=== PATIENT | female | born 1950 | race African-American/Black ===

== ENCOUNTER 2019-05-02 10:50 | Emergency (ER) | payer OTHER ==
[~2019-05-02] VITALS: Ht 165.1 cm; Wt 108.9 kg
--- NOTE | 2019-05-02 11:00 | NUR ---
Patient to ER bed 8 to gown for evaluation. Side rails up. Assumed care.
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
--- NOTE | 2019-05-02 11:07 | NUR ---
ER at bedside examining patient.
[2019-05-02 11:08] VITALS: BP_SYST 154
--- NOTE | 2019-05-02 12:30 | NUR ---
Patient awaiting radiology exams. Will continue to follow up and monitor.
[2019-05-02 14:12] VITALS: BP_SYST 150
--- NOTE | 2019-05-02 14:12 | NUR ---
Patient given written and verbal discharge instructions and verbalizes understanding. ER MD discussed with patient the results and treatment provided. Patient in stable condition. ID arm band removed. Rx of Motrin, Robaxin, English given. Patient educated on pain management and to follow up with PMD. Pain Scale 3/10. Opportunity for questions provided and answered. Medication side effect fact sheet provided.
== END 2019-05-02 14:12 | disposition home or self-care (01) ==
LOC: SED 10:50
DX: S16.1XXA Strain of muscle, fascia and tendon at neck level, initial encounter (principal); V49.50XA Passenger injured in collision with unspecified motor vehicles in traffic accident, initial encounter; Y93.89 Activity, other specified; Y92.89 Other specified places as the place of occurrence of the external cause; Y99.8 Other external cause status
CPT/HCPCS: 72125-TC; 99284

== ENCOUNTER 2019-06-19 04:31 | Emergency (ER) | payer OTHER ==
[~2019-06-19] VITALS: Ht 165.1 cm; Wt 113.4 kg
[2019-06-19 05:03] VITALS: BP_SYST 150
[2019-06-19 06:46] LABS: STREPTOCOCCUS A SCREEN (RAPID) NEGATIVE (NEGATIVE)
[2019-06-19] MEDS ORDERED: OSELTAMIVIR PHOSPHATE 75 MG CAPSULE PO ONE (07:00)
[2019-06-19 07:39] LABS: BASOPHILS % (AUTO) 0.6 % (0.0-2.0); EOSINOPHILS % (AUTO) 0.2 % (0.0-4.0); HEMATOCRIT 37.5 % (36-48); HEMOGLOBIN 12.6 g/dL (12.0-16.0); LYMPHOCYTES # (AUTO) 0.5 K/uL (1.0-5.5); LYMPHOCYTES % (AUTO) 9.3 % (20.5-51.5); MEAN CORPUSCULAR HEMOGLOBIN 29 pg (27-31); MEAN CORPUSCULAR HGB CONC 34 % (32-36); MEAN CORPUSCULAR VOLUME 87 fL (79.0-98.0); MONOCYTES # (AUTO) 0.6 K/uL (0.0-1.0); MONOCYTES % (AUTO) 12.4 % (1.7-9.3); NEUTROPHILS % (AUTO) 77.5 % (40.0-70.0); PLATELET COUNT (AUTO) 193 K/uL (130-430); RED CELL DISTRIBUTION WIDTH 14.5 % (9.0-15.0); WHITE BLOOD COUNT (AUTO) 5.1 K/uL (4.8-10.8)
[2019-06-19] MEDS ORDERED: AZITHROMYCIN 250 MG TABLET PO ONE (07:45)
[2019-06-19] MEDS ORDERED: OSELTAMIVIR PHOSPHATE 75 MG CAPSULE ONE (08:13)
[2019-06-19 08:20] LABS: CALCIUM 8.6 mg/dL (8.4-11.0); CREATININE 0.8 mg/dL (0.55-1.30); POTASSIUM 3.9 mmol/L (3.5-5.1)
[2019-06-19 08:26] VITALS: BP_SYST 148
[2019-06-19 08:38] LABS: ALBUMIN 3.3 g/dL (3.4-4.8); TOTAL BILIRUBIN 0.3 mg/dL (0.0-1.0)
== END 2019-06-19 08:26 | disposition home or self-care (01) ==
LOC: SED 04:31
DX: J11.00 Influenza due to unidentified influenza virus with unspecified type of pneumonia (principal)
CPT/HCPCS: 36415; 71045; 80053; 85025; 86403; 86710; 87081; 99284; G9035; Q0144

== ENCOUNTER 2021-05-01 23:29 | Inpatient (IN) | payer OTHER, SELFPAY ==
[~2021-05-01] VITALS: Ht 165.1 cm; Wt 111.6 kg
[2021-05-01 23:29] VITALS: BP_SYST 136
--- NOTE | 2021-05-02 01:05 | NUR ---
Patient to ER bed 1 to gown for evaluation. Side rails up. Report received from SAMUEL Fraser
--- NOTE | 2021-05-02 01:06 | NUR ---
Assumed total care of patient. Patient BIB ALS from home c/o ALOC. Patient is AAO x4, placed on correctional classification counselor, tachypneic, tachycardic, warm to the touch, blood pressure WNL. Patient has 20g LAC, IV site patent without signs of infiltration or infection. Per patient arrived home from work today and stayed in the car for about an hour prior to coming into the house and then appeared to be altered, fatigued, and incontinent. Patient c/o being tired and a toothache. Patient history of diabetes and high cholesterol. Patient takes metformin. Patient has been experiencing diarrhea x1 weeks per . Will continue to monitor.
--- NOTE | 2021-05-02 01:08 | NUR ---
at bedside with patient.
--- NOTE | 2021-05-02 01:10 | NUR ---
ER Dr. Harper at bedside examining patient.
[2021-05-02 01:18] LABS: BASOPHILS % (AUTO) 0.3 % (0.0-2.0); EOSINOPHILS % (AUTO) 0.1 % (0.0-4.0); HEMATOCRIT 39.3 % (36-48); HEMOGLOBIN 13.2 g/dL (12.0-16.0); LYMPHOCYTES # (AUTO) 0.5 K/uL (1.0-5.5); LYMPHOCYTES % (AUTO) 3.2 % (20.5-51.5); MEAN CORPUSCULAR HEMOGLOBIN 28 pg (27-31); MEAN CORPUSCULAR HGB CONC 34 % (32-36); MEAN CORPUSCULAR VOLUME 84 fL (79.0-98.0); MONOCYTES # (AUTO) 0.7 K/uL (0.0-1.0); NEUTROPHILS # (AUTO) 13.4 K/uL (1.8-7.7); NEUTROPHILS % (AUTO) 91.4 % (40.0-70.0); PLATELET COUNT (AUTO) 236 K/uL (130-430); RED BLOOD CELL COUNT(AUTO) 4.68 MIL/uL (4.2-6.2); RED CELL DISTRIBUTION WIDTH 14.1 % (9.0-15.0); WHITE BLOOD COUNT (AUTO) 14.7 K/uL (4.8-10.8)
[2021-05-02 01:28] LABS: ANION GAP 12 (5-15); CALCIUM 8.6 mg/dL (8.4-11.0); CHLORIDE 100 mmol/L (98-107); CREATININE 0.73 mg/dL (0.55-1.30); GLUCOSE 175 mg/dL (70-99); POTASSIUM 3.3 mmol/L (3.5-5.1); SODIUM SERUM 140 mmol/L (136-145); UREA NITROGEN, BLOOD 8 mg/dL (8-21)
[2021-05-02 01:33] LABS: GFR AFRICAN AMERICAN 102 mL/min (>90)
[2021-05-02 01:34] LABS: ALANINE AMINOTRANSFERASE 23 U/L (12-78); ALBUMIN 3.4 g/dL (3.4-4.8); ASPARTATE AMINOTRANSFERASE 23 U/L (10-37); TOTAL BILIRUBIN 0.7 mg/dL (0.0-1.0)
[2021-05-02 01:35] LABS: ACETAMINOPHEN < 1 ug/mL (1-30); ALCOHOL, BLOOD < 3 mg/dL (<10)
--- NOTE | 2021-05-02 01:40 | NUR ---
# 16 FR In and Out catheter with use of sterile technique. Immediate return of 200 ml clear yellow urine noted. Urine sample collected and sent to lab. Pt tolerated procedure well. Patient incontinent
--- NOTE | 2021-05-02 01:43 | NUR ---
Patient transported to radiology via gurney, accompanied by jun.
[2021-05-02 01:47] LABS: CHOLESTEROL 224 mg/dL (<200); HDL CHOLESTEROL 63 mg/dL (>55); LDL CHOLESTEROL 145 mg/dL (<100); TRIGLYCERIDES 92 mg/dL (30-150)
[2021-05-02 01:58] LABS: BILIRUBIN,URINE NEGATIVE (NEGATIVE); BLOOD, URINE 2+ (NEGATIVE); COLOR,URINE YELLOW (YELLOW); GLUCOSE,URINE NEGATIVE (NEGATIVE); KETONES,URINE 3+ (NEGATIVE); LEUKOCYTE ESTERASE ,URINE NEGATIVE (NEGATIVE); NITRITE, URINE NEGATIVE (NEGATIVE); PH,URINE 5.5 (5.0-8.0); PROTEIN URINE NEGATIVE (NEGATIVE); UROBILINOGEN,URINE 0.2 (0.2-1.0)
--- NOTE | 2021-05-02 02:01 | NUR ---
Returned from radiology, back to [facility].
[2021-05-02 02:02] LABS: CLARITY/URINE SLIGHTLY CLOUDY (CLEAR)
[2021-05-02 02:15] LABS: BARBITURATE, URINE NEGATIVE (NEG <=200); BENZODIAZEPINE, URINE NEGATIVE (NEG <=150); CANNABINOID, URINE NEGATIVE (NEG <=50); COCAINE, URINE NEGATIVE (NEG <=150); METHAMPHETAMINES SCREEN,URINE NEGATIVE (NEG <=500); OPIATE, URINE NEGATIVE (NEG <=100); PHENCYCLIDINE SCREEN,URINE NEGATIVE (NEG <=25); UR TRICYCLIC ANTIDEPRESSANTS NEGATIVE (NEG <=300); URINE AMPHETAMINE NEGATIVE (NEG <=500); URINE METHADONE NEGATIVE (NEG <=200); URINE OXYCODONE SCREEN NEGATIVE (NEG <=100); URINE PROPOXYPHENE SCREEN NEGATIVE (NEG <=300)
[2021-05-02 02:38] LABS: BACTERIA,URINE FEW /HPF (None Seen); WBC,URINE 0-3 /HPF (0-3)
--- NOTE | 2021-05-02 03:12 | NUR ---
Patient cleaned, fresh linens placed on gurney, and warm blanket given to patient. at bedside
--- NOTE | 2021-05-02 03:30 | NUR ---
Dr. Harper at bedside speaking with patient and family
--- NOTE | 2021-05-02 03:57 | NUR ---
Patient will be admitted to care of Dr. Santiago. Admitted to TELE unit. Will go to room pending. Complete and up to date summary report printed. SBAR report to be given at bedside with opportunity for questions.
--- NOTE | 2021-05-02 04:17 | NUR ---
Patient's code status is Full CODE paperwork completed and placed in chart.
--- NOTE | 2021-05-02 05:02 | NUR ---
Patient remains incontinent. Patient cleaned, linens changed, given warm blankets.
--- NOTE | 2021-05-02 05:04 | NUR ---
# 16 FR Gillette catheter with use of sterile technique. Immediate return of 50 cc clear yellow urine noted. Bedside drainage bag placed below level of bladder. Urine sample collected and sent to lab. Pt tolerated procedure well.
--- NOTE | 2021-05-02 06:51 | NUR ---
Patient will be going to room 104B after 07
--- NOTE | 2021-05-02 07:06 | NUR ---
Report given to SAMUEL Woodward for continuation of care.
--- NOTE | 2021-05-02 07:38 | NUR ---
REPRT GIVEN TO ROSAS BAKER, UPDATED ON STATUS, LLABS AND VITALS. PT STABLE FOR TRANSFER. VSS.
[2021-05-02] MEDS ORDERED: ALBUTEROL SULFATE 0.083% 2.5 MG/3 ML VIAL.NEB INH PRN (07:45)
--- NOTE | 2021-05-02 07:56 | NUR ---
Patient will be admitted to care of DR KNAPP. Admitted to unit. Will go to room . Belongings list completed. Complete and up to date summary report printed. SBAR report to be given at bedside with opportunity for questions.
[2021-05-02 08:00] VITALS: BP_SYST 160
--- NOTE | 2021-05-02 08:00 | NUR ---
PATIENT CAME FROM ER A 70 YEAR OLD PATIENT. ALERT AWAKE X 3-4. WITH ALOC DIAGNOSIS. HAS IV ACCESS ON THE LEFT AC #20 SALINE LOCK. LUNGS BILATERALLY CLEAR. ABDOMEN SOFT AND NON DISTENDED. PATIENT CAME WITH BURCIAGA CATHETER #16. DRAINING CLEAR YELLOW URINE. DUE TO RETENTION. AND FREQUENCY PER REPORT. CALL LIGHTS WITHIN REACH. BED LOW POSITION, ALARMED AND LOCKED. OBESE.
[2021-05-02 08:15] LABS: BASOPHILS # (AUTO) 0.1 K/uL (0.0-0.2); BASOPHILS % (AUTO) 0.6 % (0.0-2.0); HEMATOCRIT 36.7 % (36-48); HEMOGLOBIN 12.3 g/dL (12.0-16.0); LYMPHOCYTES # (AUTO) 0.6 K/uL (1.0-5.5); LYMPHOCYTES % (AUTO) 5.2 % (20.5-51.5); MEAN CORPUSCULAR HEMOGLOBIN 28 pg (27-31); MEAN CORPUSCULAR HGB CONC 34 % (32-36); MEAN CORPUSCULAR VOLUME 84 fL (79.0-98.0); MONOCYTES # (AUTO) 0.8 K/uL (0.0-1.0); MONOCYTES % (AUTO) 6.4 % (1.7-9.3); NEUTROPHILS # (AUTO) 10.5 K/uL (1.8-7.7); NEUTROPHILS % (AUTO) 87.8 % (40.0-70.0); PLATELET COUNT (AUTO) 202 K/uL (130-430); RED BLOOD CELL COUNT(AUTO) 4.35 MIL/uL (4.2-6.2); RED CELL DISTRIBUTION WIDTH 14.3 % (9.0-15.0)
[2021-05-02 08:37] LABS: ALBUMIN 2.9 g/dL (3.4-4.8); CALCIUM 8.3 mg/dL (8.4-11.0); CREATININE 0.82 mg/dL (0.55-1.30); POTASSIUM 3.2 mmol/L (3.5-5.1); TOTAL BILIRUBIN 0.6 mg/dL (0.0-1.0)
[2021-05-02 08:41] VITALS: BP_SYST 136
[2021-05-02 08:47] LABS: INR 1.1 (0.8-1.2); PROTHROMBIN TIME 11.4 SECS (9.5-12.5)
--- NOTE | 2021-05-02 09:00 | NUR ---
SEEN BY DR RODRIGUEZ ASIC ENGINEER.
--- NOTE | 2021-05-02 09:04 | NUR ---
CONSULTATION PAGED REASON FOR CONSULTATION:CONFUSION WAS CONSULT CALLED?Y PERSON WHO WAS NOTIFIED:MAGAN GIBBS TEXT MESSAGED CONSULTING PHYSICIAN:MAGAN GIBBS DATA WAREHOUSE CONSULTANT SPECIALTY:NEURO DATA WAREHOUSE CONSULTANT PHONE NUMBER:[phone] REQUESTING PHYSICIAN:TAYLOR MONGE
--- NOTE | 2021-05-02 09:08 | NUR ---
CONSULTATION PAGED REASON FOR CONSULTATION:RULE OUT ARRHYTMIA WAS CONSULT CALLED?Y PERSON WHO WAS NOTIFIED:JOSE CONSULTING PHYSICIAN:JASON BROWNE EARLY INTERVENTION SPECIALIST SPECIALTY:CARDIO EARLY INTERVENTION SPECIALIST PHONE NUMBER:[phone] REQUESTING PHYSICIAN:TAYLOR MONGE
[2021-05-02] MEDS: ACETAMINOPHEN 325 MG TABLET PO PRN ×3 (10:22→20:29)
[2021-05-02] MEDS: ASPIRIN 325 MG TABLET PO SCH (10:22)
--- NOTE | 2021-05-02 11:00 | NUR ---
ADMISSION ASSESSMENT, DATA DONE AT THIS TIME. COVID VACCINE DOCUMENTED. ON NEURO CHECK EVERY 4 HOURS.
[2021-05-02 11:48] VITALS: BP_SYST 160
[2021-05-02 12:29] VITALS: BP_SYST 134
[2021-05-02 15:29] LABS: BARBITURATE, URINE NEGATIVE (NEG <=200); BENZODIAZEPINE, URINE NEGATIVE (NEG <=150); CANNABINOID, URINE NEGATIVE (NEG <=50); COCAINE, URINE NEGATIVE (NEG <=150); METHAMPHETAMINES SCREEN,URINE NEGATIVE (NEG <=500); OPIATE, URINE NEGATIVE (NEG <=100); PHENCYCLIDINE SCREEN,URINE NEGATIVE (NEG <=25); UR TRICYCLIC ANTIDEPRESSANTS NEGATIVE (NEG <=300); URINE AMPHETAMINE NEGATIVE (NEG <=500); URINE METHADONE NEGATIVE (NEG <=200); URINE OXYCODONE SCREEN NEGATIVE (NEG <=100); URINE PROPOXYPHENE SCREEN NEGATIVE (NEG <=300)
[2021-05-02] MEDS: cefTRIAXone 1 GM IVPB PREMIX 50 ML IV SCH (15:30)
--- NOTE | 2021-05-02 15:30 | NUR ---
URINE DRUG SCREEN SENT TO LAB.
--- NOTE | 2021-05-02 15:50 | NUR ---
ROCEPHIN IV STARTED AT THIS TIME.
[2021-05-02 16:45] VITALS: BP_SYST 130
--- NOTE | 2021-05-02 17:01 | NUR ---
SPEECH EVALUATION COMPLETED. ST TX NOT INDICATED AT THIS TIME. PT APPEARS TO HAVE ADEQUATE COMMUNICATION AND COGNITION SKILLS. NOTES THAT PT COMMUNICATION AND COGNITION ARE AT PRIOR LEVEL OF FUNCTION.
--- NOTE | 2021-05-02 18:00 | NUR ---
SEEN BY MAGAN DACOSTA.
--- NOTE | 2021-05-02 19:00 | NUR ---
NEEDS A SEIZURE PADS PLEASE
--- NOTE | 2021-05-02 19:30 | NUR ---
ENDORSED TO INCOMING NURSE OLINDA BAKER. FOR EEG IN AM
[2021-05-02 20:00] VITALS: BP_SYST 124
--- NOTE | 2021-05-02 20:00 | NUR ---
Opening notes Pt AAOx3, VSS, afebrile. No s/s distress noted. Rt cheek swollen from previous partial tooth replacement. IV saline lock L.AC 20G clear and patent. Gillette catheter draining to gravity with clear, dark yellow urine. Call light within reach. Bed low, locked, siderails up x2, to monitor.
[2021-05-02] MEDS ORDERED: IBUP-1970 PO (20:37)
[2021-05-02] MEDS ORDERED: ATOR40TA68 PO (20:37)
[2021-05-02] MEDS ORDERED: METF-518 PO (20:37)
[2021-05-02] MEDS ORDERED: LISI40TA15 PO (20:37)
--- NOTE | 2021-05-02 21:19 | NUR ---
MD aware K+ 3.2 Called and spoke w/ Dr. Vanegas and aware of K+3.2 and pt Diabetic, no changes ordered at this time.
[2021-05-03 00:05] VITALS: BP_SYST 128
[2021-05-03] MEDS: ACETAMINOPHEN 325 MG TABLET PO PRN ×3 (00:12→08:53)
--- NOTE | 2021-05-03 00:15 | NUR ---
Rounds Pt asleep, easily awakens, VSS, no s/s distress noted. Gillette catheter draining to gravity. at bedside. Will continue to monitor.
--- NOTE | 2021-05-03 05:30 | NUR ---
EKG at bedside.
--- NOTE | 2021-05-03 06:30 | NUR ---
Closing notes Pt AAOx3. No s/s distress noted. Medicated with Tylenol 2 tabs for c/o cheek pain. IV saline lock L.AC 20G clear and patent. Gillette catheter draining to gravity with clear, dark yellow urine. Call light within reach. Bed low, locked, siderails up x2. at bedside. To endorse to AM nurse.
[2021-05-03 07:12] LABS: BASOPHILS % (AUTO) 0.4 % (0.0-2.0); EOSINOPHILS % (AUTO) 0.3 % (0.0-4.0); HEMATOCRIT 35.7 % (36-48); HEMOGLOBIN 11.8 g/dL (12.0-16.0); LYMPHOCYTES # (AUTO) 0.9 K/uL (1.0-5.5); MEAN CORPUSCULAR HEMOGLOBIN 28 pg (27-31); MEAN CORPUSCULAR HGB CONC 33 % (32-36); MEAN CORPUSCULAR VOLUME 86 fL (79.0-98.0); MONOCYTES # (AUTO) 0.8 K/uL (0.0-1.0); MONOCYTES % (AUTO) 11.1 % (1.7-9.3); NEUTROPHILS # (AUTO) 5.3 K/uL (1.8-7.7); NEUTROPHILS % (AUTO) 75.2 % (40.0-70.0); PLATELET COUNT (AUTO) 185 K/uL (130-430); RED BLOOD CELL COUNT(AUTO) 4.17 MIL/uL (4.2-6.2); RED CELL DISTRIBUTION WIDTH 14.3 % (9.0-15.0); WHITE BLOOD COUNT (AUTO) 7.1 K/uL (4.8-10.8)
[2021-05-03 07:34] LABS: ALBUMIN 2.8 g/dL (3.4-4.8); CALCIUM 8.4 mg/dL (8.4-11.0); CREATININE 0.73 mg/dL (0.55-1.30); POTASSIUM 3.3 mmol/L (3.5-5.1); TOTAL BILIRUBIN 0.3 mg/dL (0.0-1.0)
[2021-05-03] MEDS ORDERED: POTASSIUM CHLORIDE 20 MEQ TAB.PRT.SR PO ONE (08:15)
--- NOTE | 2021-05-03 08:28 | NUR ---
DR RODRIGUEZ HAULING CONTRACTOR CAME INFORMED REGARDING SWOLLEN FACE. DUE TO DENTAL WORKUP SAID BY THE PATIENT AND .
[2021-05-03] MEDS ORDERED: IBUPROFEN 400 MG TABLET PO PRN (08:45)
[2021-05-03] MEDS: cefTRIAXone 1 GM IVPB PREMIX 50 ML IV SCH (08:53)
[2021-05-03] MEDS: ASPIRIN 325 MG TABLET PO SCH (08:54)
--- NOTE | 2021-05-03 08:59 | NUR ---
IV ACCESS PULLED OUT BY THE PATIENT.
[2021-05-03] MEDS ORDERED: amLODIPine BESYLATE 10 MG TABLET PO ONE (09:00)
--- NOTE | 2021-05-03 09:00 | NUR ---
DUE MEDS GIVEN AT THIS TIME.
[2021-05-03 09:39] VITALS: BP_SYST 122
--- NOTE | 2021-05-03 09:43 | NUR ---
CONSULTATION PAGED/CALLED Reason for Consultation: [] SEPSIS Person Who was Notified: [] [place] Consulting Physician: [] DR KAMARA Leather Finisher Specialty: [] ID Ordering Physician: [] DR HA/DR KNAPP
[2021-05-03] MEDS: IBUPROFEN 800 MG TABLET PO PRN ×2 (11:41→17:51)
[2021-05-03] MEDS: INSULIN REGULAR, HUMAN 100 UNITS/ML, 10 ML VIAL (humuLIN R) SUBCUT PRN ×3 (11:44→20:52)
[2021-05-03 12:33] VITALS: BP_SYST 122
--- NOTE | 2021-05-03 14:00 | NUR ---
EEG NOT DONE DUE TO THE PATIENT HAS WIG AND CANNOT BE DONE AT THIS TIME.
--- NOTE | 2021-05-03 16:20 | NUR ---
PATIENT SLEEPING AT THIS TIME. AT THE BEDSIDE. NO COMPLAINED OF PAIN RATHER.
[2021-05-03 16:33] VITALS: BP_SYST 126
--- NOTE | 2021-05-03 18:39 | NUR ---
LATEST BS 160 MG/DL. COVERAGE GIVEN. IBUFROBEN TABLET GIVEN AT THIS TIME. AND GLUCOPHAGE TABLET GIVEN.
[2021-05-03 20:00] VITALS: BP_SYST 129
--- NOTE | 2021-05-03 20:00 | NUR ---
Opening notes Pt awake, VSS, IV saline lock L. FA clear and patent. Right cheek swelling decreasing. Gillette catheter draining to gravity with dark yellow urine. Call light wiithin reach. at bedside. To monitor.
[2021-05-04 01:16] VITALS: BP_SYST 122
[2021-05-04] MEDS: IBUPROFEN 800 MG TABLET PO PRN ×2 (01:22→09:52)
--- NOTE | 2021-05-04 01:22 | NUR ---
Rounds/Motrin Pt awake, c/o some bleeding from mouth. Noted light pink bleeding on pillowcase. Motrin 800mg PO given at this time. Warm salty water given to pt to use to gargle. To monitor.
[2021-05-04 06:09] LABS: BASOPHILS % (AUTO) 0.4 % (0.0-2.0); EOSINOPHILS # (AUTO) 0.1 K/uL (0.0-0.4); EOSINOPHILS % (AUTO) 0.9 % (0.0-4.0); HEMATOCRIT 36.6 % (36-48); HEMOGLOBIN 11.9 g/dL (12.0-16.0); LYMPHOCYTES # (AUTO) 1.6 K/uL (1.0-5.5); LYMPHOCYTES % (AUTO) 14.1 % (20.5-51.5); MEAN CORPUSCULAR HEMOGLOBIN 28 pg (27-31); MEAN CORPUSCULAR HGB CONC 33 % (32-36); MEAN CORPUSCULAR VOLUME 86 fL (79.0-98.0); MONOCYTES # (AUTO) 1.1 K/uL (0.0-1.0); MONOCYTES % (AUTO) 9.9 % (1.7-9.3); NEUTROPHILS # (AUTO) 8.3 K/uL (1.8-7.7); NEUTROPHILS % (AUTO) 74.7 % (40.0-70.0); PLATELET COUNT (AUTO) 178 K/uL (130-430); RED BLOOD CELL COUNT(AUTO) 4.27 MIL/uL (4.2-6.2); RED CELL DISTRIBUTION WIDTH 14.2 % (9.0-15.0); WHITE BLOOD COUNT (AUTO) 11.2 K/uL (4.8-10.8)
--- NOTE | 2021-05-04 06:10 | NUR ---
Closing notes/Stroke education Pt asleep, easily awakens. No s/s distress noted. Pt educated re Contributing factors of stroke along with at bedside. Pt/ verbalized understanding. IV saline lock L.FA 22G clear and patent. Call light within reach. Bed low, locked, siderails up x2. To endorse to AM nurse.
[2021-05-04 06:49] LABS: ALBUMIN 2.6 g/dL (3.4-4.8); CALCIUM 7.7 mg/dL (8.4-11.0); CREATININE 0.61 mg/dL (0.55-1.30); POTASSIUM 3.2 mmol/L (3.5-5.1); TOTAL BILIRUBIN 0.2 mg/dL (0.0-1.0)
--- NOTE | 2021-05-04 07:03 | NUR ---
PHYSICAL THERAPY CO-SIGN The Physical Therapy Progress Notes documented by Patient Financial Services Coordinator have been reviewed. Reviewed/Co-Signed by: José Miguel Vela Documentation Done by: CADEN PHAM PTA Addendum: 05/04/21 at 0704 by José Miguel Vela PT Amended: Links added.
[2021-05-04 07:43] LABS: ERYTHROCYTE SEDIMENTATION RATE 64 MM/HR (0-20)
[2021-05-04 07:57] LABS: C-REACTIVE PROTEIN QUANT 20.2 mg/dL (0-0.5)
[2021-05-04 08:00] VITALS: BP_SYST 120
[2021-05-04] MEDS ORDERED: POTASSIUM CHLORIDE 20 MEQ TAB.PRT.SR PO ONE (08:15)
[2021-05-04] MEDS: amLODIPine BESYLATE 10 MG TABLET PO SCH (08:25)
[2021-05-04] MEDS: ASPIRIN 325 MG TABLET PO SCH (08:25)
[2021-05-04] MEDS: ATORVASTATIN 20 MG TABLET PO SCH (08:26)
[2021-05-04] MEDS: lisinopriL 20 MG TABLET PO SCH (08:26)
--- NOTE | 2021-05-04 11:09 | NUR ---
Nutrition Update Sridhar Scale 17 noted. Pt admitted for encephalopathy versus CVA. Diet: cardiac BMI: 41.1 kg/m2 RD to follow per nutrition care standards.
[2021-05-04] MEDS: AMPICILLIN SODIUM/SULBACTAM NA 3 GM in NS 100 ML IV SCH ×3 (11:47→23:37)
[2021-05-04 12:00] VITALS: BP_SYST 124
--- NOTE | 2021-05-04 13:58 | NUR ---
IV infiltrated at left forearm. Iv started at right forearm G22, patent.
[2021-05-04 16:13] VITALS: BP_SYST 105
--- NOTE | 2021-05-04 16:27 | NUR ---
Dietitian Recommendations * Cardiac, CCHO diet * Encourage increase PO intakes * RD provided heart-healthy/DM/wt management MNT LP, RD Please refer to Nutrition Assessment for details. Addendum: 05/04/21 at [address] Amended: Links added.
--- NOTE | 2021-05-04 19:35 | NUR ---
ROUNDS PATIENT RESTING COMFORTABLY IN BED, VITALS STABLE, NO PAIN AT THIS TIME. ASSESSMENT DONE AND DOCUEMNTED. SEE FLOWSHEET. NEEDS ATTENDED TO. SAFETY MEASURES IN PLACED. CALL LIGHT PLACED WITHIN REACH.
[2021-05-04 20:00] VITALS: BP_SYST 118
--- NOTE | 2021-05-05 00:13 | NUR ---
PATIENT RESTING: Patient resting quietly. No acute distress noted. Vital signs within normal range.
[2021-05-05 00:39] VITALS: BP_SYST 118
[2021-05-05] MEDS: AMPICILLIN SODIUM/SULBACTAM NA 3 GM in NS 100 ML IV SCH ×2 (05:13→11:47)
[2021-05-05 07:37] LABS: BASOPHILS % (AUTO) 0.6 % (0.0-2.0); EOSINOPHILS # (AUTO) 0.2 K/uL (0.0-0.4); HEMATOCRIT 35.9 % (36-48); HEMOGLOBIN 12.1 g/dL (12.0-16.0); LYMPHOCYTES # (AUTO) 1.5 K/uL (1.0-5.5); LYMPHOCYTES % (AUTO) 21.3 % (20.5-51.5); MEAN CORPUSCULAR HEMOGLOBIN 29 pg (27-31); MEAN CORPUSCULAR HGB CONC 34 % (32-36); MEAN CORPUSCULAR VOLUME 85 fL (79.0-98.0); MONOCYTES # (AUTO) 0.9 K/uL (0.0-1.0); NEUTROPHILS # (AUTO) 4.3 K/uL (1.8-7.7); NEUTROPHILS % (AUTO) 62.1 % (40.0-70.0); PLATELET COUNT (AUTO) 207 K/uL (130-430); RED BLOOD CELL COUNT(AUTO) 4.24 MIL/uL (4.2-6.2); RED CELL DISTRIBUTION WIDTH 14.3 % (9.0-15.0)
[2021-05-05 08:00] VITALS: BP_SYST 113
[2021-05-05 08:36] LABS: ERYTHROCYTE SEDIMENTATION RATE 56 MM/HR (0-20)
[2021-05-05] MEDS: ASPIRIN 325 MG TABLET PO SCH (08:51)
[2021-05-05] MEDS: amLODIPine BESYLATE 10 MG TABLET PO SCH (08:52)
[2021-05-05] MEDS: lisinopriL 20 MG TABLET PO SCH (08:53)
[2021-05-05] MEDS: ATORVASTATIN 20 MG TABLET PO SCH (08:53)
[2021-05-05 10:14] LABS: CALCIUM 8.5 mg/dL (8.4-11.0); CREATININE 0.6 mg/dL (0.55-1.30); POTASSIUM 3.6 mmol/L (3.5-5.1)
[2021-05-05] MEDS ORDERED: ASPI-989 PO (11:23)
[2021-05-05] MEDS ORDERED: NOR10 PO (11:23)
[2021-05-05] MEDS ORDERED: AMOX-423 PO (11:23)
[2021-05-05 12:22] VITALS: BP_SYST 116
[2021-05-05 13:00] VITALS: BP_SYST 116
--- NOTE | 2021-05-05 13:22 | NUR ---
Discharged home with vital signs stable and with no complaints. Discontinued Peripheral IV. no bleeding noted. Discontinued Gillette catheter as per MD order. patient tolerated procedure well and patient was able to void before discharge. Discharge instructions, prescriptions and excuse letter provided to patient. no other concerns patient verbalized. Accompanied by Milind (). All personal effects accounted for and with patient upon discharge.
[2021-05-05 13:47] LABS: C-REACTIVE PROTEIN QUANT 17.2 mg/dL (0-0.5)
== END 2021-05-05 13:20 | disposition home or self-care (01) | DRG 871 ==
LOC: SED 23:29 → STU 05-02 03:51
PROVIDERS: ADMIT Internal Medicine Hospice and Palliative Medicine; ATTEND Internal Medicine Hospice and Palliative Medicine
DX: A41.9 Sepsis, unspecified organism (principal); G93.41 Metabolic encephalopathy; Z68.41 Body mass index [BMI] 40.0-44.9, adult; L03.311 Cellulitis of abdominal wall; I10 Essential (primary) hypertension; E78.5 Hyperlipidemia, unspecified; E66.01 Morbid (severe) obesity due to excess calories; J32.0 Chronic maxillary sinusitis; E11.65 Type 2 diabetes mellitus with hyperglycemia; Z20.822 Contact with and (suspected) exposure to COVID-19; E78.00 Pure hypercholesterolemia, unspecified; Z90.710 Acquired absence of both cervix and uterus
CPT/HCPCS: 36415; 70450-TC; 70551; 71045; 76376; 80048; 80053; 80061; 80307; 81000; 82140; 82607; 82962; 83036; 83605; 84443; 84484; 85025; 85610-TC; 85651-TC; 85730-TC; 86140; 87040-TC; 92523; 93005; 93306; 93880; 97110-GP; 97116-GP; 97530-GP; 99285; G0378; G0480; G0481; G0482; J0295; J0696; J1815

== ENCOUNTER 2022-03-10 08:41 | Emergency (ER) | payer OTHER ==
[~2022-03-10] VITALS: Ht 165.1 cm; Wt 112.0 kg
[~2022-03-10 08:41] MED LIST: AMOX-423 PO; ASPI-989 PO; ATOR40TA68 PO; IBUP-1970 PO; LISI40TA20 PO; METF-518 PO; NOR10 PO
[2022-03-10 09:13] VITALS: BP_SYST 141
--- NOTE | 2022-03-10 09:30 | NUR ---
Patient to ER bed 8 to gown for evaluation. Side rails up. Report given to GERBER BAKER.
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
--- NOTE | 2022-03-10 10:00 | NUR ---
ER at bedside examining patient.
--- NOTE | 2022-03-10 10:12 | NUR ---
Pt resting in bed aaox4 speaking full sentences to a family friend. Pt given medication per dr order for pain. will reassess pain scale in one full hour.
[2022-03-10] MEDS ORDERED: HYDROcodone/ACETAMIN 5-325 MG TAB (NORCO/ VICODIN) PO ONE (10:15)
[2022-03-10] MEDS ORDERED: DOCU-144 PO (10:21)
[2022-03-10] MEDS ORDERED: ONDA-8 TL (10:21)
[2022-03-10] MEDS ORDERED: ACET-2634 PO (10:21)
[2022-03-10] MEDS ORDERED: TRAM50TA PO (10:21)
--- NOTE | 2022-03-10 10:57 | NUR ---
EMT Ger splint, amos wrap and shoulder immoblilozer provided with education. Cap refill <3seconds.
--- NOTE | 2022-03-10 10:58 | NUR ---
Patient given written and verbal discharge instructions and verbalizes understanding. ER MD discussed with patient the results and treatment provided. Patient in stable condition. ID arm band removed. Rx of Tylenol, Colace, Zofran, and Tramadol given. Patient educated on pain management and to follow up with PMD. Opportunity for questions provided and answered. Medication side effect fact sheet provided.
[2022-03-10 11:00] VITALS: BP_SYST 141
== END 2022-03-10 11:00 | disposition home or self-care (01) ==
LOC: SED 08:41
DX: S63.501A Unspecified sprain of right wrist, initial encounter (principal); E11.9 Type 2 diabetes mellitus without complications; E78.5 Hyperlipidemia, unspecified; Z79.899 Other long term (current) drug therapy; W01.0XXA Fall on same level from slipping, tripping and stumbling without subsequent striking against object, initial encounter; Y93.89 Activity, other specified; Y92.89 Other specified places as the place of occurrence of the external cause; Y99.8 Other external cause status
CPT/HCPCS: 99283

== ENCOUNTER 2023-06-08 15:28 | Emergency (ER) | payer OTHER ==
[~2023-06-08] VITALS: Ht 165.1 cm; Wt 104.3 kg
[~2023-06-08 15:28] MED LIST changes: +ACET-2634 PO; +DOCU-144 PO; +ONDA-8 TL; +TRAM50TA PO
[2023-06-08 15:30] VITALS: BP_SYST 117; PULSE 83; RESP 17; TEMP 97.1; O2SAT 99
[2023-06-08] MEDS ORDERED: KETOROLAC TROMETHAMINE 30 MG VIAL IM ONE (16:45)
[2023-06-08] MEDS ORDERED: ACETAMINOPHEN 500 MG TABLET PO ONE (17:45)
[2023-06-08] MEDS ORDERED: ACETAMINOPHEN 500 MG TABLET ONE (17:45)
[2023-06-08] MEDS ORDERED: ACET1TAB93 PO (18:17)
[2023-06-08] MEDS ORDERED: IBUP-1969 PO (18:17)
[2023-06-08 18:41] VITALS: BP_SYST 117; PULSE 83; RESP 17; TEMP 97.1; O2SAT 99
== END 2023-06-08 18:39 | disposition home or self-care (01) ==
LOC: SED 15:28
DX: S82.64XA Nondisplaced fracture of lateral malleolus of right fibula, initial encounter for closed fracture (principal); E11.9 Type 2 diabetes mellitus without complications; I10 Essential (primary) hypertension; E78.5 Hyperlipidemia, unspecified; Z79.899 Other long term (current) drug therapy; W18.40XA Slipping, tripping and stumbling without falling, unspecified, initial encounter; Y93.89 Activity, other specified; Y92.89 Other specified places as the place of occurrence of the external cause; Y99.8 Other external cause status
CPT/HCPCS: 99283; 29515; 73610; 96372; J1885